=== PATIENT | male | born 1960 | race Caucasian/White ===

== ENCOUNTER 2017-02-16 01:13 | Emergency (ER) | payer OTHER ==
[2017-02-16 01:15] VITALS: BP 196/101; PULSE 60; RESP 16; TEMP 97.8; O2SAT 99
== END 2017-02-16 04:45 | disposition left against medical advice (07) ==
LOC: NED 01:13
DX: Z53.9 Procedure and treatment not carried out, unspecified reason (principal)
CPT/HCPCS: 99281